=== PATIENT | female | born 1970 | race Caucasian/White ===

== ENCOUNTER → 2020-08-21 10:59 | Outpatient (CLI) | payer SELFPAY ==
--- NOTE | 2020-08-21 11:09 | US_ITS ---
STUDY: ULTRASOUND BREAST - LEFT REASON FOR EXAM: Female, 50 years old. ABNORMAL LT MAMM TECHNIQUE: Axial and longitudinal images of the LEFT breast were performed with a high resolution ultrasound transducer. # OF IMAGES: 19 COMPARISON: None. FINDINGS: LEFT Breast: There is a lesion #1 in the upper outer quadrant. The lesion measures 1 x 1.3 x 0.9 cm in size. Clock notation: 3 o''clock position. Distance from nipple: 5 cm. Posterior Enhancement: Yes. Posterior Shadowing: None. Margins: Sharp and jagged. Echogenicity: Anechoic. Compression effect on Shape: No change. US/Breast Limited Unilateral IMPRESSION: Probably benign cystic lesion. 6 month follow-up ultrasound is recommended to ensure stability. ASSESSMENT CATEGORY: BIRADS Category 3: Probably Benign - Short-Interval Follow-up Suggested. A letter regarding these results will be sent to the patient by the facility within 30 days. Electronically Signed: Ana Marroquin, at 15:36 EDT Tel , Service support ,
== END ==
PROVIDERS: PCP Family Medicine; Referring Provider Family Medicine; Visit Provider Family Medicine
DX: R92.8 Other abnormal and inconclusive findings on diagnostic imaging of breast (principal)
CPT/HCPCS: 76642